=== PATIENT | female | born 1985 | race Caucasian/White ===

== ENCOUNTER 2017-06-09 11:35 | Emergency (ER) | payer OTHER ==
[~2017-06-09] VITALS: Ht 157.5 cm; Wt 103.6 kg
[~2017-06-09 11:35] MED LIST: IBUP-2213 PO; LAC PO; NITR100C7 PO
[2017-06-09 11:40] VITALS: BP 131/68
--- NOTE | 2017-06-09 11:42 | NUR ---
Patient ambulated to bed 5. RN evaluating patient at bedside. Addendum: 06/09/17 at 1203 by [email or web address] PT DON'T WANT PAIN MED AT THIS TIME.
--- NOTE | 2017-06-09 12:01 | NUR ---
32/F BIB SELF C/O LEFT SIDED UPPER/LOWER TOOTHACHE X 1 WEEK, WITH FEVER LAST NIGHT. A DENIES N/V/D; SKIN IS PINK/WARM/DRY; AAOX4 WITH EVEN AND STEADY GAIT; LUNGS CLEAR BL; HR EVEN AND REGULAR; PT DENIES ANY FEVER, CP, SOB, OR COUGH AT THIS TIME; PATIENT STATES PAIN OF 10/10 AT THIS TIME; VSS; PATIENT POSITIONED FOR COMFORT; HOB ELEVATED; BEDRAILS UP X2; BED DOWN. ER MD MADE AWARE OF PT STATUS.
[2017-06-09 12:18] VITALS: BP 131/75
== END 2017-06-09 12:18 | disposition home or self-care (01) ==
LOC: MED 11:35
DX: K08.89 Other specified disorders of teeth and supporting structures (principal)
CPT/HCPCS: 81002; 99283

== ENCOUNTER 2017-12-23 21:50 | Emergency (ER) | payer OTHER ==
[~2017-12-23] VITALS: Ht 157.5 cm; Wt 104.3 kg
[2017-12-23 21:52] VITALS: BP 118/75
--- NOTE | 2017-12-23 22:01 | NUR ---
PT.AMBULATED TO ER CHD
--- NOTE | 2017-12-23 23:00 | NUR ---
32Y/F PT. PRESENTS TO ED WITH C/O TOOTHACHE X 1 DAY. PT. TOOK 2 GM OF TYLENOL BEFORE ARRIVAL FOR PAIN. NO MED HX. AAO X4, AMBULATORY WITH STEDAY GAIT. C/O PAIN 07/10, VSS, ER MADE AWARE OF PT. SATUS.
--- NOTE | 2017-12-23 23:02 | NUR ---
Dr. Dowell evaluating patient.
[2017-12-23] MEDS ORDERED: BUPIVACAINE-MPF 0.5% 10 ML VIAL INJ ONE ×2 (23:10→23:45)
--- NOTE | 2017-12-23 23:15 | NUR ---
PT MOVED TO BED 4
--- NOTE | 2017-12-23 23:20 | NUR ---
INJECT 0.5% BUPIVACAINE TO LT.SIDE OF TEEH, PT. TOLERATED WELL
[2017-12-23 23:58] VITALS: BP 121/78
--- NOTE | 2017-12-23 23:58 | NUR ---
Patient discharged with v/s stable. Written and verbal after care instructions given and explained. Patient verbalized understanding. Ambulatory with steady gait. All questions addressed prior to discharge. Advised to follow up with PMD.
== END 2017-12-23 23:58 | disposition home or self-care (01) ==
LOC: MED 21:50
DX: K02.9 Dental caries, unspecified (principal); K08.89 Other specified disorders of teeth and supporting structures; F15.90 Other stimulant use, unspecified, uncomplicated; Z79.899 Other long term (current) drug therapy
CPT/HCPCS: 64400; 99284; J3490

== ENCOUNTER 2019-02-07 15:40 | Emergency (ER) | payer OTHER ==
[~2019-02-07] VITALS: Ht 157.5 cm; Wt 102.5 kg
[2019-02-07 15:43] VITALS: BP 145/73
--- NOTE | 2019-02-07 15:54 | NUR ---
PATIENT AMBULATED TO BED 8.
--- NOTE | 2019-02-07 15:57 | NUR ---
X RAY AT BEDSIDE.
--- NOTE | 2019-02-07 16:10 | NUR ---
PATIENT PRESENTS TO ED WITH C/O LEFT FOOT PAIN AFTER A HEAVY OBJECT FELL ON 3RD TOE TODAY. PT STATES PAIN OF 9/10 AT THIS TIME. + EDEMA, PULSES PRESENT. LIMITED ROM NOTED.
--- NOTE | 2019-02-07 16:43 | NUR ---
DR DORANTES AT BEDSIDE.
--- NOTE | 2019-02-07 16:57 | NUR ---
TYLER TAPE APPLIED TO SECOND AND THIRD TOE APPLIED AT THIS TIME. PMSCs WITHIN NORMAL LIMIT. ORTHO SHOE APPLIED AT THIS TIME.
[2019-02-07 17:26] VITALS: BP 132/62
--- NOTE | 2019-02-07 17:27 | NUR ---
Patient discharged with v/s stable. Written and verbal after care instructions given and explained. Patient alert, oriented and verbalized understanding of instructions. Ambulatory with steady gait. All questions addressed prior to discharge. ID band removed. Patient advised to follow up with PMD. Rx of Keflex, Motrin given. Patient educated on indication of medication including possible reaction and side effects. Opportunity to ask questions provided and answered.
== END 2019-02-07 17:25 | disposition home or self-care (01) ==
LOC: MED 15:40
DX: S92.532A Displaced fracture of distal phalanx of left lesser toe(s), initial encounter for closed fracture (principal); S91.205A Unspecified open wound of left lesser toe(s) with damage to nail, initial encounter; Z88.6 Allergy status to analgesic agent; Z79.2 Long term (current) use of antibiotics; Z79.899 Other long term (current) drug therapy; W20.1XXA Struck by object due to collapse of building, initial encounter; Y93.89 Activity, other specified; Y92.89 Other specified places as the place of occurrence of the external cause; Y99.8 Other external cause status
CPT/HCPCS: 73630; 90471; 90715; 99283; Q0092

== ENCOUNTER 2019-09-02 12:17 | Emergency (ER) | payer OTHER ==
[~2019-09-02] VITALS: Ht 157.5 cm; Wt 102.5 kg
--- NOTE | 2019-09-02 12:23 | NUR ---
Patient ambulated to bed 6. RN evaluating patient at bedside.
[2019-09-02 12:26] VITALS: BP 141/77
--- NOTE | 2019-09-02 12:27 | NUR ---
34 Y/O F PRESENTS TO ER C/O DRY COUGH X3 DAYS. DENIES FEVER, RUNNY NOSE OR SORE THROAT. PAIN LEVEL 8/10. PER PT "I FEEL OUT OF BREATH WHEN I COUGH TO WHERE I ALMOST WANT TO VOMIT." RESPIRATIONS EVEN AND UNLABORED. O2 SATURATION 98% ON RA. HOB ELEVATED, BED IN LOWEST POSITION, BED RAIL UP X1. WAITING FOR ERMD TO EVALUATE PT. ALLERGIES: NKA MED HX: NONE
--- NOTE | 2019-09-02 13:06 | NUR ---
Dr. Sylvester is evaluating the patient at bedside.
--- NOTE | 2019-09-02 13:34 | NUR ---
Patient transferred to chair C. RN re-evaluating patient.
[2019-09-02] MEDS ORDERED: AZITHROMYCIN 250 MG TAB PO ONE (14:45)
[2019-09-02 15:11] VITALS: BP 141/77
--- NOTE | 2019-09-02 15:12 | NUR ---
Patient discharged with v/s stable. Written and verbal after care instructions given and explained. Patient alert, oriented and verbalized understanding of instructions. Ambulatory with steady gait. All questions addressed prior to discharge. ID band removed. Patient advised to follow up with PMD. Rx of AZYTHROMYCIN AND TESSALON PERLES given. Patient educated on indication of medication including possible reaction and side effects. Opportunity to ask questions provided and answered.
== END 2019-09-02 15:12 | disposition home or self-care (01) ==
LOC: MED 12:17
DX: J06.9 Acute upper respiratory infection, unspecified (principal); Z79.899 Other long term (current) drug therapy
CPT/HCPCS: 99283

== ENCOUNTER 2020-08-14 09:50 | Emergency (ER) | payer OTHER ==
[~2020-08-14] VITALS: Ht 157.5 cm; Wt 108.9 kg
[2020-08-14 10:00] VITALS: BP 127/74
[2020-08-14] MEDS ORDERED: KETOROLAC 60 MG/2 ML VIAL IM ONE (11:20)
[2020-08-14] MEDS ORDERED: PENICILLIN G BENZATHINE L-A 1.2 MU/2 ML SYR IM ONE (11:20)
[2020-08-14 12:14] VITALS: BP 127/74
== END 2020-08-14 12:14 | disposition home or self-care (01) ==
LOC: MED 09:50
DX: J02.0 Streptococcal pharyngitis (principal); Z79.899 Other long term (current) drug therapy
CPT/HCPCS: 96372; 99284; J0561; J1885

== ENCOUNTER 2022-02-16 20:47 | Emergency (ER) | payer OTHER ==
[~2022-02-16] VITALS: Ht 157.5 cm; Wt 113.4 kg
[2022-02-16 20:58] VITALS: BP 134/68
--- NOTE | 2022-02-16 21:03 | NUR ---
PT TAKEN TO BED 5
--- NOTE | 2022-02-16 21:17 | NUR ---
Dr. Valadez examining patient.
--- NOTE | 2022-02-16 21:28 | NUR ---
NOE SWAB COLLECTED AND WALKED TO LAB
--- NOTE | 2022-02-16 21:30 | NUR ---
37/F BIB SELF C/O COUGH X 9 DAYS. PAIN IS INTERMIT. 06/10, WHEN COUGHING. PATIENT STATED "WHEN I COUGH HARD, GREEN MUCOUS COMES OUT". SHE STATED SHE FEELS PRESSURE AND IRRITATION ON THE THROAT. PATIENT RR ARE EVEN AND UNLABORED. NO S/S OF RR DISTRESS. PATIENT CALM AND COOPERATIVE. PATIENT IN BED LOW AND LOCKED. PLACED IN GOWN WITH SIDE RAIL UP FOR SAFETY. ALL NEEDS MET AT THIS TIME. NKA PMHX DENIES MEDS DENIES
[2022-02-16] MEDS ORDERED: PRED20TA5 PO (22:26)
[2022-02-16] MEDS ORDERED: ALBU0.0912 IH (22:26)
--- NOTE | 2022-02-16 22:30 | NUR ---
patient sitting quietly in bed. bed low and locked. side rail up for safety. all needs met
--- NOTE | 2022-02-16 22:30 | NUR ---
md phipps at bedside
[2022-02-16 23:02] VITALS: BP 128/68
--- NOTE | 2022-02-16 23:02 | NUR ---
The patient's care was reviewed and supervised by Heather Rojas RN.
--- NOTE | 2022-02-16 23:02 | NUR ---
Patient discharged with v/s stable. Written and verbal after care instructions given on Acute Bronchitis and explained. Patient alert, oriented and verbalized understanding of instructions. Ambulatory with steady gait. All questions addressed prior to discharge. ID band removed. Patient advised to follow up with PMD. Rx of Albuterol Sulfate, Prednisone given.
== END 2022-02-16 23:02 | disposition home or self-care (01) ==
LOC: MED 20:47
DX: J40 Bronchitis, not specified as acute or chronic (principal); Z20.822 Contact with and (suspected) exposure to COVID-19; B34.9 Viral infection, unspecified; Z79.899 Other long term (current) drug therapy; Z79.1 Long term (current) use of non-steroidal anti-inflammatories (NSAID); Z79.2 Long term (current) use of antibiotics
CPT/HCPCS: 71045; 99284

== ENCOUNTER 2022-04-19 17:04 | Emergency (ER) | payer OTHER ==
[~2022-04-19] VITALS: Ht 157.5 cm; Wt 109.5 kg
[~2022-04-19 17:04] MED LIST changes: +ALBU0.0912 IH; +PRED20TA5 PO
[2022-04-19 17:17] VITALS: BP 165/71
[2022-04-19] MEDS ORDERED: KETOROLAC 30 MG/ML VIAL IM ONE (18:20)
[2022-04-19] MEDS ORDERED: IBUP-2213 PO (18:35)
[2022-04-19] MEDS ORDERED: KETOROLAC 30 MG/ML VIAL ONE (19:24)
== END 2022-04-19 19:37 | disposition home or self-care (01) ==
LOC: MED 17:04
DX: S83.421A Sprain of lateral collateral ligament of right knee, initial encounter (principal); X58.XXXA Exposure to other specified factors, initial encounter; Y93.89 Activity, other specified; Y92.89 Other specified places as the place of occurrence of the external cause; Y99.8 Other external cause status
CPT/HCPCS: 96372; 99283; J1885

== ENCOUNTER 2022-08-17 18:22 | Emergency (ER) | payer OTHER ==
[~2022-08-17] VITALS: Ht 160 cm; Wt 111.6 kg
[2022-08-17 18:44] VITALS: BP 159/90
[2022-08-17] MEDS ORDERED: IBUP-2213 PO (19:14)
== END 2022-08-17 19:31 | disposition home or self-care (01) ==
LOC: MED 18:22
DX: M25.531 Pain in right wrist (principal)
CPT/HCPCS: 99283

== ENCOUNTER 2024-05-28 13:09 | Emergency (ER) | payer OTHER ==
[~2024-05-28] VITALS: Ht 157.5 cm; Wt 102.5 kg
[2024-05-28 13:20] VITALS: BP 146/81; PULSE 75; RESP 18; TEMP 98.2; O2SAT 97
--- NOTE | 2024-05-28 13:42 | NUR ---
RT CALLED FOR BREATHING TREATMENT
--- NOTE | 2024-05-28 13:53 | NUR ---
RT AT [facility] FOR BREATHING TREATMENT
[2024-05-28] MEDS: ALBUTEROL 0.083% 2.5 MG/3 ML NEBU INH ONE (13:57)
[2024-05-28 13:59] VITALS: PULSE 86; RESP 16; O2SAT 95
[2024-05-28 14:13] LABS: FLU A ANTIGEN negative (NEGATIVE); FLU B ANTIGEN negative (NEGATIVE)
[2024-05-28] MEDS ORDERED: PRED20TA5 PO (14:52)
[2024-05-28] MEDS ORDERED: PRON INH (14:52)
[2024-05-28] MEDS ORDERED: BROM118S3 PO (14:58)
--- NOTE | 2024-05-28 15:00 | NUR ---
The patient's care was reviewed and supervised by JJ AMAYA RN.
--- NOTE | 2024-05-28 15:00 | NUR ---
Patient discharged with v/s stable. Written and verbal after care instructions given and explained. Patient alert, oriented and verbalized understanding of instructions. Ambulatory with steady gait. All questions addressed prior to discharge. ID band removed. Patient advised to follow up with PMD. Rx of PROVENTIL, DELTASONE given. Opportunity to ask questions provided and answered.
== END 2024-05-28 15:00 | disposition home or self-care (01) ==
LOC: MED 13:09
DX: R05.9 Cough, unspecified (principal); J98.01 Acute bronchospasm; Z20.822 Contact with and (suspected) exposure to COVID-19; R03.0 Elevated blood-pressure reading, without diagnosis of hypertension; Z79.899 Other long term (current) drug therapy
CPT/HCPCS: 71045; 87426; 87804; 94640; 99284; J7613; 82948